=== PATIENT | male | born 1965 | race Caucasian/White ===

== ENCOUNTER 2022-04-11 08:55 | Outpatient (CLI) | payer OTHER, SELFPAY ==
[2022-04-11 14:21] LABS: Cholesterol* 192 mg/dL (90-199); HDL Cholesterol* 65 mg/dL (>=40); LDL Cholesterol Calculated 116 mg/dL (<100); Triglycerides* 54 mg/dL (40-149)
[2022-04-11 14:50] LABS: PSA Screen* 1.32 ng/mL (0.10-4.00)
== END 2022-04-11 08:56 | disposition home or self-care (01) ==
PROVIDERS: PCP Family Medicine; Visit Provider Family Medicine
DX: Z13.6 Encounter for screening for cardiovascular disorders (principal); Z12.5 Encounter for screening for malignant neoplasm of prostate
CPT/HCPCS: 80061; 84153

== ENCOUNTER 2024-06-05 13:30 | Outpatient (CLI) | payer OTHER, SELFPAY ==
--- NOTE | 2024-06-05 13:45 | MR_ITS ---
[facility] [address] [facility] [address] Phone:?[phone] Fax:?[phone] Referring Physician Information: MIGUEL ÁNGEL Mccullough [address] [facility] [address] Phone:?[phone] Fax:?[phone] Patient:?Niko Ca D.O.B:?1965 Sex:?Male Phone:?[phone] [facility] MRN:?[id number] Exam Date:?06/05/2024 EXAM: MRI OF THE RIGHT ANKLE WITHOUT CONTRAST CLINICAL INFORMATION: Male, 58 years old, with right ankle pain. INDICATION: Evaluate for Achilles tendon injury. PRIOR SURGERY: None reported. PLAIN FILMS: None available. COMPARISONS: No prior MRIs available. TECHNICAL INFORMATION: Using a 1.5T MR scanner and a localizing surface coil: sagittals: PD, T2, STIR coronals: PD, T2FS axials: PD, T2FS, PDFS oblique SEDATION: None. CONTRAST: None. FINDINGS: Osseous structures: No stress/occult fracture or other marrow edema/pathology. Os trigonum: No os trigonum or abnormally prominent Stieda's process. Tarsal coalition: No calcaneonavicular, talocalcaneal or cubonavicular coalition. Tibiotalar joint: Effusion: Physiologic. Ganglion cyst: None. Osteochondral surfaces: No osteochondral abnormality. Loose bodies: No demonstrable loose bodies. Subtalar joint: Effusion: Physiologic. Articular cartilage: No osteochondral abnormality. Tarsal joints: Talonavicular: Unremarkable. Calcaneocuboid: Unremarkable. Naviculocuneiform: Unremarkable. Tarsometatarsal: Unremarkable. Ligaments: Syndesmotic ligaments:?The anterior and posterior inferior tibiofibular syndesmotic ligaments are normal. Lateral ligaments:?Mild-moderate thickening and irregularity of the anterior talofibular and calcaneofibular ligaments (axial PD series 3 images 30-35). Deltoid ligament:?The visualized components of the superficial and deep deltoid ligament, specifically the tibiospring and posterior tibiotalar ligaments, are intact. Calcaneonavicular spring ligament:?The superomedial component of the calcaneonavicular spring ligament is grossly intact. Bifurcate and calcaneocuboid ligaments:?Intact lateral calcaneonavicular and medial calcaneocuboid ligaments. The dorsolateral calcaneocuboid ligament is intact. Tendons: Peroneal:?The peroneal tendons are appropriately situated within the retromalleolar groove and the superior peroneal retinaculum is intact. Normal thickness and signal intensity without tendinopathy, tenosynovitis, or split/tear. Flexor tendons:?The posterior tibialis, flexor digitorum and flexor hallucis longus tendons are intact, without tendinopathy or split/tear. Moderate flexor hallucis longus tenosynovitis (axial T2FS series 4 images 28 & 39). Extensor tendons:?The anterior tibialis, extensor digitorum longus, and extensor hallucis longus tendons are intact. No significant tendinopathy and without tenosynovitis, tendon split or tendon disruption. Achilles:?Low insertion of the soleus. There is high-grade tearing along the distal myotendinous junction over a length of 4.2 cm and centered approximately 5.5 cm from the tendon insertion with 1.1 cm of tendon retraction (sagittal T2 series 7 image 16). Marked edema/hemorrhage is present throughout the posterior three fourths of the ankle and distal calf. Sinus tarsi:?The sinus tarsi signal is normal. Plantar aponeurosis: There is no abnormal thickening of, abnormal intrasubstance signal involving, or perifascial edema about the plantar aponeurosis. Specifically, the plantar fascia origin appears normal in signal intensity and morphology. Plantar musculature:?The intrinsic foot musculature is normal in bulk and signal intensity without evidence of denervation atrophy. Neurovascular structures and tarsal tunnel: The posterior tibial neurovascular structures appear unremarkable coursing past the ankle and through the tarsal tunnel. IMPRESSION: 1. High-grade tearing of the distal Achilles myotendinous junction over a length of 4.2 cm with 1.1 cm of tendon retraction/gapping and centered approximately 5.5 cm from the insertion. There is a low insertion of the soleus muscle belly, which partially attached to the Achilles tendon distal to the site of injury. 2. Moderate flexor hallucis longus tenosynovitis. 3. Chronic sequela low-grade lateral ligament sprain injury. 4. Moderate-marked soft tissue edema/hemorrhage throughout the posterior three fourths of the calf and ankle. 5. No fracture or osseous stress reaction. BC Electronically signed on 06/06/2024 12:25:00 PM by Jayro Evans M.D.
== END 2024-06-05 13:31 | disposition home or self-care (01) ==
LOC: MRI 13:31
PROVIDERS: PCP Family Medicine; Visit Provider Physician Assistant Surgical
DX: M25.571 Pain in right ankle and joints of right foot (principal); S86.011A Strain of right Achilles tendon, initial encounter; M65.871 Other synovitis and tenosynovitis, right ankle and foot; S93.401S Sprain of unspecified ligament of right ankle, sequela; S86.019A Strain of unspecified Achilles tendon, initial encounter
CPT/HCPCS: 73721

== ENCOUNTER 2024-10-08 15:15 | Outpatient (RCR) | payer OTHER, SELFPAY | END 2024-10-09 07:59 | disposition home or self-care (01) | PROVIDERS: PCP Family Medicine; Visit Provider Physician Assistant Surgical | DX: S86.011A Strain of right Achilles tendon, initial encounter (principal); Z74.09 Other reduced mobility; R26.9 Unspecified abnormalities of gait and mobility; R53.1 Weakness; Z51.89 Encounter for other specified aftercare | CPT/HCPCS: 97110; 97161; 97535 ==

== ENCOUNTER 2024-12-10 15:15 | Outpatient (CLI) | payer OTHER, SELFPAY | END 2024-12-10 15:16 | disposition home or self-care (01) | PROVIDERS: PCP Family Medicine; Visit Provider Family Medicine | DX: Z12.5 Encounter for screening for malignant neoplasm of prostate (principal) | CPT/HCPCS: G0103 ==